=== PATIENT | female | born 1965 | race Caucasian/White ===

== ENCOUNTER → 2020-05-24 | Outpatient (CLI) | payer BC, SELFPAY ==
[2019-05-20 10:14] VITALS: BMI 46.6
== END | disposition home or self-care (01) ==
LOC: LABSPEC 11:30
PROVIDERS: PCP Family Medicine; Visit Provider Family Medicine
DX: Z11.59 Encounter for screening for other viral diseases (principal)
CPT/HCPCS: 87635; U0003

== ENCOUNTER → 2020-07-15 | Outpatient (CLI) | payer BC, SELFPAY ==
[2019-05-20 10:14] VITALS: BMI 46.6
== END | disposition home or self-care (01) ==
LOC: LABSPEC 12:35
PROVIDERS: Visit Provider Family Medicine
DX: Z11.59 Encounter for screening for other viral diseases (principal)
CPT/HCPCS: 87635; U0003

== ENCOUNTER → 2020-07-27 | Outpatient (CLI) | payer BC, SELFPAY ==
[2020-07-27 14:02] VITALS: BMI 46.6
[2020-08-04 14:39] LABS: HPV APTIMA, High Risk Negative (Negative)
== END | disposition home or self-care (01) ==
LOC: LABSPEC 16:52
PROVIDERS: Referring Provider Obstetrics & Gynecology; Visit Provider Obstetrics & Gynecology
DX: Z12.4 Encounter for screening for malignant neoplasm of cervix (principal)
CPT/HCPCS: 87624; 88175; G0145

== ENCOUNTER → 2020-07-29 | Outpatient (CLI) | payer BC, SELFPAY ==
[2020-07-27 14:02] VITALS: BMI 46.6
== END | disposition home or self-care (01) ==
LOC: LABSPEC 10:48
PROVIDERS: Visit Provider Family Medicine
DX: Z11.59 Encounter for screening for other viral diseases (principal)
CPT/HCPCS: 87635; U0003

== ENCOUNTER → 2020-08-12 09:24 | Outpatient (CLI) | payer BC, SELFPAY ==
[2020-07-27 14:02] VITALS: BMI 46.6
== END | disposition home or self-care (01) ==
LOC: LABSPEC 09:25
PROVIDERS: Referring Provider Family Medicine; Visit Provider Family Medicine
CPT/HCPCS: 87635; U0003

== ENCOUNTER → 2020-08-26 | Outpatient (CLI) | payer BC, SELFPAY ==
[2020-07-27 14:02] VITALS: BMI 46.6
== END | disposition home or self-care (01) ==
LOC: LABSPEC 09:57
PROVIDERS: Referring Provider Family Medicine; Visit Provider Family Medicine
DX: Z03.818 Encounter for observation for suspected exposure to other biological agents ruled out (principal)
CPT/HCPCS: 87635; U0003

== ENCOUNTER → 2020-09-09 | Outpatient (CLI) | payer BC, SELFPAY ==
[2020-07-27 14:02] VITALS: BMI 46.6
== END | disposition home or self-care (01) ==
LOC: LABSPEC 12:28
PROVIDERS: Referring Provider Family Medicine; Visit Provider Family Medicine
DX: Z03.818 Encounter for observation for suspected exposure to other biological agents ruled out (principal)
CPT/HCPCS: 87635; U0003

== ENCOUNTER → 2021-01-21 | Outpatient (CLI) | payer BC, SELFPAY ==
[2020-07-27 14:02] VITALS: BMI 46.6
== END | disposition home or self-care (01) ==
PROVIDERS: Visit Provider Family Medicine
DX: Z03.818 Encounter for observation for suspected exposure to other biological agents ruled out (principal)
CPT/HCPCS: 87635; U0002

== ENCOUNTER → 2024-07-08 | Outpatient (CLI) | payer OTHER, SELFPAY ==
[2024-07-10 15:08] LABS: HPV APTIMA, High Risk Negative (Negative)
== END | disposition home or self-care (01) ==
LOC: LABSPEC 12:22
PROVIDERS: Referring Provider Obstetrics & Gynecology; Visit Provider Obstetrics & Gynecology
DX: Z12.4 Encounter for screening for malignant neoplasm of cervix (principal)
CPT/HCPCS: 87624; 88175; G0145